=== PATIENT | male | born 1975 | race Caucasian/White ===

== ENCOUNTER 2017-03-05 07:12 | Day surgery (SDC) | payer OTHER ==
[~2017-03-05 07:12] MED LIST: PROPOFOL 200 MG INJ
[2017-03-05] MEDS ORDERED: MIDAZOLAM 1 MG/ML 2 ML INJ (09:31)
[2017-03-05] MEDS ORDERED: FENTAnyl 50 MCG/ML VIAL (09:31)
[2017-03-05] MEDS ORDERED: PROPOFOL 20 ML (09:31)
[2017-03-05] MEDS ORDERED: POVIDONE IODINE 10% 28.4 GM OINT (10:00)
[2017-03-05] MEDS ORDERED: KETOROLAC 30 MG INJ (10:11)
[2017-03-05] MEDS ORDERED: CEFAZOLIN 1 GM INJ (10:11)
[2017-03-05] MEDS ORDERED: DEXAMETHASONE 4 MG/ML 1 ML INJ (10:11)
[2017-03-05] MEDS ORDERED: ONDANSETRON 4 MG INJ (10:11)
[2017-03-05] MEDS ORDERED: METOCLOPRAMIDE 10 MG INJ (10:11)
[2017-03-05] MEDS ORDERED: PHENYLephrine (100 MCG/ML) 5ML SYG (10:13)
[2017-03-05] MEDS ORDERED: ROPIVACAINE 0.2% 20 ML VIAL (10:22)
[2017-03-05] MEDS ORDERED: FENTAnyl 50 MCG/ML VIAL IV ×3 (10:30)
[2017-03-05] MEDS ORDERED: OXYCODONE/ACETAMINOPHEN (5/325) TAB PO ×2 (10:30)
[2017-03-05] MEDS ORDERED: LABETALOL HCL 20MG INJ IV (10:30)
[2017-03-05] MEDS ORDERED: HYDROmorphONE (0.2 MG/ML) 10ML SYG IV ×3 (10:30)
[2017-03-05] MEDS ORDERED: MEPERIDINE 25 MG INJ IV (10:30)
[2017-03-05] MEDS ORDERED: EPHEDrine SULFATE 50 MG/5 ML SYG IV (10:30)
[2017-03-05] MEDS ORDERED: ONDANSETRON 4 MG INJ IV (10:30)
[2017-03-05] MEDS ORDERED: DIPHENHYDRAMINE 50 MG INJ IV (10:30)
== END 2017-03-05 11:55 | disposition home or self-care (01) ==
LOC: SDS 07:12
DX: L60.0 Ingrowing nail (principal); I10 Essential (primary) hypertension
CPT/HCPCS: 11750